=== PATIENT | female | born 1990 | race Caucasian/White ===

== ENCOUNTER 2020-03-31 18:56 | Emergency (ER) | payer OTHER, SELFPAY ==
[2020-03-31 19:56] VITALS: BP 114/73; PULSE 107; RESP 18; TEMP 36.9; O2SAT 97; BMI 30.8
--- NOTE | 2020-03-31 20:00 | ED.URI ---
HPI - URI/Sore Throat General Chief Complaint: Upper Respiratory Symptoms Stated Complaint: FLU LIKE SYMPTOMS Time Seen by Provider: 03/31/20 20:00 Source: patient Mode of arrival: ambulatory Limitations: no limitations History of Present Illness HPI Narrative: 29 yo female with no significant past medical history who is 30 weeks presents with body aches, fatigue, reduced appetite, nausea, productive cough. states she had an exposure as she lives with her mother and daughter, both of whom are feeling ill, she states her mother went to visit their grandfather to days ago who tested positive yesterday. She states she her last meal was this morning, she had a bowl of soup with noodles and was able to keep it down but has not been able to eat since. Denies diarrhea, vomiting or fevers. patient denies any abdominal pain, pelvic pain, Cramping, vaginal bleeding or discharge. Related Data Allergies Allergy/AdvReac Type Severity Reaction Status Date / Time No Known Allergies Allergy Unverified 02/25/20 17:09 Review of Systems Review of Systems: Yes all other systems are reviewed and are negative [facility] Past Medical History Attestation statement: The following information was validated with the patient. Medical History (Updated 03/31/20 @ 20:02 by TIKI Coronel) No known health problems No known health problems : 2 Para: 1 Social History Social History Smoking Status: Never smoker Use of substances other than those prescribed or required for medical reasons: No Advance Directives: No Physical Exam Const: General: cooperative, healthy appearing, comfortable and no acute distress Orientation/consciousness: patient oriented x3 Eyes: General: appearance normal, both eyes and all related structures Resp: Effort & Inspection: normal respiratory effort and able to speak in complete sentences Auscultation: clear to auscultation bilaterally Cardio: Rate: regular rate Rhythm: regular rhythm Heart sounds: S1 normal heart sound present, S2 normal heart sound present, no gallops, no murmurs and no rubs GI: Inspection: Yes normal to inspection ( visibly ) Skin: General skin exam: no rashes or lesions noted Neuro: General: patient oriented x3 Extrem: General: Yes normal to inspection Course Course Course Narrative: 29-year-old female, 30 weeks gestation, COVID exposure, sick contacts at home, will COVID test in sent home with instructions on self-care. We did speak at length the importance of her to stay hydrated because of her , we discussed different options such as Pedialyte, pito rale, toast, crackers. I did advise if she has any worsening of symptoms to come back to the ED. Also, I advised if she is positive, it is important for her to relate this to her braille transcriber for further guidance. Patient understands and agrees with plan. Answered all of patient's questions. Repeat heart rate 99
== END 2020-03-31 20:32 | disposition home or self-care (01) ==
PROVIDERS: Physician Assistant; Emergency Provider Emergency Medicine
DX: O26.93 Pregnancy related conditions, unspecified, third trimester (principal); Z3A.30 30 weeks gestation of pregnancy; Z20.828 Contact with and (suspected) exposure to other viral communicable diseases
CPT/HCPCS: 87635; 99283

== ENCOUNTER 2020-11-06 23:12 | Emergency (ER) | payer OTHER, SELFPAY ==
--- NOTE | ~2020-11-06 | XR_ITS ---
EXAMINATION: XR SACRUM AND COCCYX CLINICAL INFORMATION: Fall. Pain. COMPARISON: None TECHNIQUE: 3 views FINDINGS: There are no fractures. No bone, joint or soft tissue abnormality is demonstrated. Normal sacroiliac joints. Normal symphysis pubis and bilateral hip joints. XR/XR sacrum coccyx min 2V IMPRESSION: Normal sacrum and coccyx.
[2020-11-06 23:21] VITALS: BP 117/76; PULSE 111; RESP 18; TEMP 36.6; O2SAT 95; BMI 32.5
--- NOTE | 2020-11-06 23:35 | PC.NURSE ---
at bedside for primary eval.
--- NOTE | 2020-11-06 23:36 | PC.NURSE ---
MD at bedside for primary eval. Pt aware of plan to XRay.
--- NOTE | 2020-11-06 23:37 | ED_ITS ---
HPI - Back Pain/Injury General Chief Complaint: Back Pain/Injury Stated Complaint: Fall/Back pain Time Seen by Provider: 11/06/20 23:34 Source: patient Mode of arrival: ambulatory Limitations: no limitations History of Present Illness HPI Narrative: 30-year-old female came in for evaluation of back pain after fall. Patient was going down stair and she missed a step fell down about 8-10 steps of stairs landing buttocks, patient declined hitting her head, no LOC, no hand injury, only complaining of lower back pain. Patient is able to walk with lot of difficulty due to pain. Normal urination. Related Data Allergies Allergy/AdvReac Type Severity Reaction Status Date / Time No Known Allergies Allergy Verified 11/06/20 23:20 Review of Systems Review of Systems: All other systems are reviewed and are negative Constitutional: Reports as per HPI and Reports no additional constitutional complaints Eyes: Reports as per HPI and Reports no additional eye complaints Reports system reviewed and no additional complaints, except as documented Cardiovascular: Reports as per HPI and Reports no additional cardiovascular complaints Respiratory: Reports as per HPI and Reports no additional respiratory complaints Gastrointestinal: Reports as per HPI and Reports no additional gastrointestinal complaints Genitourinary: Reports no additional female genitourinary complaints Musculoskeletal: Reports no additional musculoskeletal complaints Skin/Breast: Reports system reviewed and no additional complaints, except as docu Psychiatric: Reports no additional psychiatric complaints Endocrine: Reports no additional endocrine complaints Hematologic/Lymphatic: Reports no additional hematologic/lymphatic complaints Allergic/Immunologic: Reports no additional allergic/immunologic complaints Reports system reviewed and no additional complaints, except as documented and Reports Abnormal speech present [facility] Past Medical History Medical History No known health problems No known health problems Social History Social History Advance Directives: No Advance Directives Information Provided: No Physical Exam Vital Signs: Vital Signs: Last Vital Signs Temp 97.8 F 11/06/20 23:21 Pulse 111 H 11/06/20 23:21 Resp 18 11/06/20 23:21 BP 117/76 11/06/20 23:21 Pulse Ox 95 11/06/20 23:21 Body Mass Index 32.5 Vital signs have been reviewed as appeared to be correct. Blood pressure normal. Heart rate elevated. Respiration rate normal. Temperature normal. Oxygen saturation normal. Appearance: Alert. Oriented X3. No acute distress. Head: Normal external exam. Normocephalic. Atraumatic. No Gallagher signs noted. No raccoon eyes noted Eyes: PERRLA. EOMI. Conjunctiva and sclera normal. Eyelids normal. ENT: TM's Normal. Pharynx normal. Uvula midline. Moist mucous membranes. No trismus noted. No drooling noted. No muffled voice noted. Neck: Normal inspection. Neck supple. FROM. No adenopathy. Thyroid Normal. No meningeal signs. No neck mass noted. CVS: Normal heart rate and rhythm. Heart sound normal. No murmurs noted. Pulses normal throughout. Respiratory: No respiratory distress. Painless inspiration. Breath sounds normal. No wheezes/rales/rhonchi noted. Chest nontender. No accessory muscle usage noted or decreased air movement noted. Abdomen: Soft and nontender. Bowel sounds normal in all 4 quadrants. No distention noted. No organomegaly noted. No visible injury noted. Back: Tenderness over the coccygeal area, no step-off, no ecchymosis or hematoma. Skin: Skin warm and dry. Normal skin color. Normal skin turgor. No rashes/lesions/lacerations noted. Extremities: No lower extremity edema. Extremities exhibit normal range of motion. Extremities nontender. Neuro: Oriented X 3. No motor deficit. No sensory deficit. Reflexes normal. Course Course Course Narrative: Assessment and plan. 30-year-old female presented with lower back contusion after failed few steps of stairs. X-ray show no acute fracture, patient received ibuprofen/oxycodone in the emergency department feeling better, patient is able to ambulate in the emergency department with less limping. Plan as discussed with the patient to apply ice to the lower back/wrist/NSAIDs. MDM - Back Pain/Injury Imaging Data Sacrum and coccyx x-ray: Radiologist's impression: Normal sacrum and coccyx. Discharge Plan Discharge Clinical Impression: Contusion of back Qualifiers: Encounter type: initial encounter Patient Disposition: Home, Self-Care Instructions: Contusion in Adults (ED) Additional Instructions: Rest/ice/take ibuprofen 200 mg every 6 hours for the next 2 days. Referrals: Physician,None [Primary Care Provider] - 2 days
[2020-11-06] MEDS: Ibuprofen 400 MG TABLET PO (23:39)
[2020-11-06] MEDS: oxyCODONE HCl Immed Release 5 MG TABLET PO (23:40)
--- NOTE | 2020-11-06 23:43 | PC.NURSE ---
Pt medicated per AUG. Off to XRay on hospital bed.
--- NOTE | 2020-11-06 23:50 | PC.NURSE ---
Pt returns from XRay at this time on hospital bed, aware of plan to await results.
[2020-11-07 00:11] VITALS: BP 116/61; PULSE 80; RESP 16
== END 2020-11-07 00:22 | disposition home or self-care (01) ==
PROVIDERS: Emergency Provider Emergency Medicine
DX: S30.0XXA Contusion of lower back and pelvis, initial encounter (principal); W10.8XXA Fall (on) (from) other stairs and steps, initial encounter; Y93.89 Activity, other specified; Y92.038 Other place in apartment as the place of occurrence of the external cause; Y99.9 Unspecified external cause status
CPT/HCPCS: 72220; 99283; 99285

== ENCOUNTER 2021-05-05 11:38 | Emergency (ER) | payer OTHER, SELFPAY ==
[2021-05-05 11:44] VITALS: BP 113/70; PULSE 75; RESP 18; TEMP 36.2; O2SAT 98; BMI 33.2
--- NOTE | 2021-05-05 12:10 | ED_ITS ---
HPI - Psych General Chief Complaint: Psychiatric Symptoms Stated Complaint: crisis Time Seen by Provider: 05/05/21 12:08 Source: patient Mode of arrival: ambulatory Limitations: no limitations History of Present Illness MD complaint: suicidal ideation and feels depressed Onset (ago): week(s) Duration: getting worse History of same: Yes Relieving factors: none Exacerbating factors: none Context: significant life stressor Associated psychiatric symptoms: depression Associated symptoms: denies other symptoms Treatments prior to arrival: none If self harm: admits thoughts of self harm and has acted on plan (denies self harm and wanting to now but she took 7 excedrin this AM) Related Data Allergies Allergy/AdvReac Type Severity Reaction Status Date / Time No Known Allergies Allergy Verified 05/05/21 11:44 Review of Systems Review of Systems: Constitutional : No Fever, No Chills ENT/Mouth : No Ear Pain, No Nasal Congestion, No sore throat Eyes: No Eye Pain, No Swelling, No Redness Cardiovascular : No Chest Pain, No SOB Respiratory : No Cough, No Sputum, No Dyspnea Gastrointestinal : No Nausea, No Vomiting, No Diarrhea, No Hematochezia, No Melena Genitourinary : No Dysuria, No Urinary Frequency, No Hematuria Musculoskeletal : No Myalgias Skin : No Skin Lesions, No rash Neuro : No Weakness, No Numbness, No Paresthesias, No Dizziness, No Headache Psych : positive Anxiety, positive Depression, no SI/HI Heme/Lymph: No Lymphadenopathy Endocrine : No Polyuria, No Polydipsia All other systems reviewed and are negative PMFSH Past Medical History Attestation statement: The following information was validated with the patient. Medical History (Updated 05/05/21 @ 13:32 by Delia Shelton DO) Depression No known health problems No known health problems Social History Social History Alcohol intake: never Patient Tobacco Use Status: Never used Tobacco Use of substances other than those prescribed or required for medical reasons: Yes Substance Use Type: Marijuana Substance Use Frequency: Daily Advance Directives: No Advance Directives Information Provided: Yes Patient : No Physical Exam Vital Signs: Vital Signs: Last Vital Signs Temp 97.2 F 05/05/21 11:44 Pulse 77 05/05/21 15:56 Resp 18 05/05/21 15:56 BP 108/66 05/05/21 15:56 Pulse Ox 98 05/05/21 15:56 Body Mass Index 33.2 Appearance: Alert. Oriented X3. No acute distress. Eyes: Pupils equal, round and reactive to light. ENT: Pharynx normal. Neck: Normal inspection. Neck supple. CVS: Normal heart rate and rhythm. Pulses normal. Respiratory: No respiratory distress. Breath sounds normal. Abdomen: Soft and nontender. Skin: Skin warm and dry. Normal skin color. Normal skin turgor. Extremities: No lower extremity edema. No calf ttp Neuro: Oriented X 3. No motor deficit. No sensory deficit. CN2-12 intact Psych: pos depression, no SI Course Course Course Narrative: signed out pending repeat labs if negative medically cleared MDM - Psych MDM Narrative Medical decision making narrative: 30 yo female with hx of depression did take 7 excedrin prior to arrival - at this time will need labs , EKG, tylenol and salicylates x 2 - once medically cleared N consult Lab Data Result diagrams: 05/05/21 14:11 05/05/21 14:11 Labs: Lab Results 05/05/21 05/05/21 05/05/21 Range/Units 13:23 13:23 14:11 WBC 6.4 (4.8-10.8) X10*3/uL RBC 4.68 (4.20-5.50) X10*6/uL Hgb 13.2 (12.0-16.0) g/dl Hct 39.5 (37.0-47.0) % MCV 84.4 (80.0-98.0) fL MCH 28.2 (27.0-33.0) pg MCHC 33.4 (31.0-35.0) g/dl RDW 13.7 (11.0-16.0) % Plt Count 259 (160-400) X10*3/uL MPV 10.7 (9.4-12.3) fL Immature Gran % (Auto) 0.2 (0.0-0.4) % Neut % (Auto) 51.5 (45-73) % Lymph % (Auto) 38.7 (20-40) % [place] % (Auto) 8.7 (2-11) % Eos % (Auto) 0.3 (0-4) % Baso % (Auto) 0.6 (0-2) % Lymph # (Auto) 2.5 (1.2-4.9) X10*3/uL [place] # (Auto) 0.6 (0.1-1.2) X10*3/uL Eos # (Auto) 0.0 (0.0-0.4) X10*3/uL Baso # (Auto) 0.0 (0.0-0.2) X10*3/uL Abs Immat Gran (auto) 0.01 (0.00-0.03) X10*3/uL Absolute Neuts (auto) 3.3 (2.0-8.3) x10*3/uL Absolute Nucleated RBC 0.000 (0.0-0.012) X10*3/uL Nucleated RBC % (auto) 0.0 (0.0-0.2) /100WBC Sodium (135-145) mmol/L Potassium (3.3-5.1) mmol/L Chloride (96-108) mmol/L Carbon Dioxide (22-29) mmol/L Anion Gap (12-20) BUN (9-16) mg/dL Creatinine (0.5-1.4) mg/dL Estim Creat Clear Calc Estimated GFR Random Glucose (60-115) mg/dL Calcium (8.4-10.2) mg/dL Total Bilirubin (0.0-1.0) mg/dL Direct Bilirubin (0.0-0.5) mg/dL AST (5-31) U/L ALT (0-31) U/L Alkaline Phosphatase (39-117) U/L Total Protein (6.5-8.0) g/dL Albumin (3.5-5.0) g/dL Urine Test NEGATIVE (NEGATIVE) Salicylates (15-30) mg/dL Urine Opiates Screen Not Detected (Not Detect) Urine Fentanyl Screen Not Detected (Not Detect) Acetaminophen (<30) mcg/mL Ur Barbiturates Screen Not Detected (Not Detect) Ur Phencyclidine Scrn Not Detected (Not Detect) Ur Amphetamines Screen Not Detected (Not Detect) U Benzodiazepines Scrn Not Detected (Not Detect) Urine Cocaine Screen Not Detected (Not Detect) U Marijuana (THC) Screen POSITIVE H (Not Detect) COVID-19 (SAMI) (Negative) COVID-19 Clin Com 05/05/21 05/05/21 05/05/21 Range/Units 14:11 14:11 14:11 WBC (4.8-10.8) X10*3/uL RBC (4.20-5.50) X10*6/uL Hgb (12.0-16.0) g/dl Hct (37.0-47.0) % MCV (80.0-98.0) fL MCH (27.0-33.0) pg MCHC (31.0-35.0) g/dl RDW (11.0-16.0) % Plt Count (160-400) X10*3/uL MPV (9.4-12.3) fL Immature Gran % (Auto) (0.0-0.4) % Neut % (Auto) (45-73) % Lymph % (Auto) (20-40) % [place] % (Auto) (2-11) % Eos % (Auto) (0-4) % Baso % (Auto) (0-2) % Lymph # (Auto) (1.2-4.9) X10*3/uL [place] # (Auto) (0.1-1.2) X10*3/uL Eos # (Auto) (0.0-0.4) X10*3/uL Baso # (Auto) (0.0-0.2) X10*3/uL Abs Immat Gran (auto) (0.00-0.03) X10*3/uL Absolute Neuts (auto) (2.0-8.3) x10*3/uL Absolute Nucleated RBC (0.0-0.012) X10*3/uL Nucleated RBC % (auto) (0.0-0.2) /100WBC Sodium 140 (135-145) mmol/L Potassium 3.7 (3.3-5.1) mmol/L Chloride 108 (96-108) mmol/L Carbon Dioxide 21 L (22-29) mmol/L Anion Gap 15 (12-20) BUN 7 L (9-16) mg/dL Creatinine 0.71 (0.5-1.4) mg/dL Estim Creat Clear Calc 112.8 Estimated GFR > 60 Random Glucose 87 (60-115) mg/dL Calcium 8.9 (8.4-10.2) mg/dL Total Bilirubin 0.3 0.3 (0.0-1.0) mg/dL Direct Bilirubin 0.2 0.2 (0.0-0.5) mg/dL AST 23 21 (5-31) U/L ALT 26 26 (0-31) U/L Alkaline Phosphatase 82 81 (39-117) U/L Total Protein 7.4 7.4 (6.5-8.0) g/dL Albumin 4.6 4.6 (3.5-5.0) g/dL Urine Test (NEGATIVE) Salicylates 11.0 L (15-30) mg/dL Urine Opiates Screen (Not Detect) Urine Fentanyl Screen (Not Detect) Acetaminophen 16 (<30) mcg/mL Ur Barbiturates Screen (Not Detect) Ur Phencyclidine Scrn (Not Detect) Ur Amphetamines Screen (Not Detect) U Benzodiazepines Scrn (Not Detect) Urine Cocaine Screen (Not Detect) U Marijuana (THC) Screen (Not Detect) COVID-19 (SAMI) Negative (Negative) COVID-19 Clin Com See Note ECG Data Attestation: I personally reviewed and interpreted this ECG as follows: ECG interpretation date: 05/05/21 ECG interpretation time: 14:02 Interpretation: Rate: 69 Rhythm: NSR [place]: left Normal P waves. Normal [place]. Normal QRS complex. ST T wave : inverted V1-V2, no DIOR qTC: normal prior studies: no acute ischemia The study has been interpreted contemporaneously by me. . Discharge Plan Discharge Clinical Impression: Depression Qualifiers: Depression Type: unspecified Qualified Code(s): F32.A - Depression, unspecified
--- NOTE | 2021-05-05 12:35 | ECG_ITS ---
Test Reason : PSYCH Blood Pressure : / mmHG Vent. Rate : 069 BPM Atrial Rate : 069 BPM P-R Int : 132 ms QRS Dur : 094 ms QT Int : 414 ms P-R-T Axes : 020 000 028 degrees QTc Int : 443 ms Normal sinus rhythm RSR' or QR pattern in V1 suggests right ventricular conduction delay Abnormal ECG When compared with ECG of 12-DEC-2012 10:11, ST no longer depressed in Inferior leads Heart rate has decreased Referred By: Delia Shelton Electronically Signed By:DARREL ZAMORANO MD
[2021-05-05 13:40] LABS: UPreg QC Valid YES; Urine Pregnancy NEGATIVE (NEGATIVE)
[2021-05-05 13:44] VITALS: BP 113/60; PULSE 73; RESP 18; O2SAT 99
[2021-05-05 13:54] LABS: Amphetamine Screen Urine Not Detected (Not Detect); Barbiturates, Urine Not Detected (Not Detect); Benzodiazepines Screen Urine Not Detected (Not Detect); Cannabinoid Screen Urine POSITIVE (Not Detect); Cocaine Screen Urine Not Detected (Not Detect); Fentanyl, urine Not Detected (Not Detect); Opiate Screen Urine Not Detected (Not Detect); Phencyclidine Screen Urine Not Detected (Not Detect)
[2021-05-05 14:17] LABS: MANUAL DIFF FLAG NO
[2021-05-05 14:19] LABS: Basophils Percent Auto 0.6 % (0-2); Eosinophils Percent Auto 0.3 % (0-4); Hematocrit 39.5 % (37.0-47.0); Hemoglobin 13.2 g/dl (12.0-16.0); Imm Gran Abs Auto 0.01 X10*3/uL (0.00-0.03); Imm Gran Pct Auto 0.2 % (0.0-0.4); Lymphocytes Absolute Auto 2.5 X10*3/uL (1.2-4.9); Lymphocytes Percent Auto 38.7 % (20-40); Mean Corpuscular HGB Conc 33.4 g/dl (31.0-35.0); Mean Corpuscular Hemoglobin 28.2 pg (27.0-33.0); Mean Corpuscular Volume 84.4 fL (80.0-98.0); Mean Platelet Volume 10.7 fL (9.4-12.3); Monocytes Absolute Auto 0.6 X10*3/uL (0.1-1.2); Monocytes Percent Auto 8.7 % (2-11); Neutrophils Absolute Auto 3.3 x10*3/uL (2.0-8.3); Neutrophils Percent Auto 51.5 % (45-73); Platelet Count 259 X10*3/uL (160-400); Red Blood Count 4.68 X10*6/uL (4.20-5.50); Red Cell Distribution Width 13.7 % (11.0-16.0); White Blood Count 6.4 X10*3/uL (4.8-10.8)
[2021-05-05 14:34] LABS: COVID-19 Test Negative (Negative); IDNOW Serial# 9DD0AD1C
[2021-05-05 14:37] LABS: Acetaminophen LAB 16 mcg/mL (<30); Alanine Aminotransferase 26 U/L (0-31); Albumin Level 4.6 g/dL (3.5-5.0); Alkaline Phosphatase 81 U/L (39-117); Aspartate Amino Transferase 21 U/L (5-31); Bilirubin Direct 0.2 mg/dL (0.0-0.5); Bilirubin Total 0.3 mg/dL (0.0-1.0); Total Protein 7.4 g/dL (6.5-8.0)
[2021-05-05 14:38] LABS: Alanine Aminotransferase 26 U/L (0-31); Albumin Level 4.6 g/dL (3.5-5.0); Alkaline Phosphatase 82 U/L (39-117); Anion Gap 15 (12-20); Aspartate Amino Transferase 23 U/L (5-31); Bilirubin Direct 0.2 mg/dL (0.0-0.5); Bilirubin Total 0.3 mg/dL (0.0-1.0); Blood Urea Nitrogen 7 mg/dL (9-16); Calcium 8.9 mg/dL (8.4-10.2); Carbon Dioxide 21 mmol/L (22-29); Chloride 108 mmol/L (96-108); Creatinine Clr Calc Pharmacy 112.8; Estimated Glomerular Filt Rate > 60; Glucose Random 87 mg/dL (60-115); Potassium 3.7 mmol/L (3.3-5.1); Sodium 140 mmol/L (135-145); Total Protein 7.4 g/dL (6.5-8.0)
[2021-05-05 15:56] VITALS: BP 108/66; PULSE 77; RESP 18; O2SAT 98
--- NOTE | 2021-05-05 15:56 | PC.NURSE ---
pt alert and oriented, skin appropriate for ethnicity, respirations even and unlabored. pt reports taking 2 tabs of Excedrin for a headache then took additional 5 tabs not sure exactly why, pt keeps reporting that she just feels tired, very vague but also reports anxious at this time. sitter in place
[2021-05-05] MEDS: LORazepam 1 MG TABLET PO (16:00)
[2021-05-05 16:34] LABS: Acetaminophen LAB 10 mcg/mL (<30); Salicylate 8.8 mg/dL (15-30)
--- NOTE | 2021-05-05 17:53 | PC.NURSE ---
referral to n done in the computer
--- NOTE | 2021-05-05 19:53 | PC.NURSE ---
BHn in to see patient at this time.
--- NOTE | 2021-05-05 20:57 | PC.NURSE ---
Patient is alert and oriented x 4 lung sounds are clear skin is pink warm and dry speaks in full sentences aware of plan of care to be discharged home with partial hospitalization and outpt referral. Denies any self harm at this time is calm and cooperative.
== END 2021-05-05 21:01 | disposition home or self-care (01) ==
PROVIDERS: Emergency Provider Emergency Medicine; PCP Internal Medicine
DX: F32.A Depression, unspecified (principal); R45.851 Suicidal ideations; F41.9 Anxiety disorder, unspecified; F12.90 Cannabis use, unspecified, uncomplicated; Z20.822 Contact with and (suspected) exposure to COVID-19
CPT/HCPCS: 36415; 80048; 80076; 80143; 80179; 80307; 81025; 85025; 87635; 93005; 99285

== ENCOUNTER 2023-09-20 20:14 | Emergency (ER) | payer OTHER, SELFPAY ==
[2023-09-20 20:30] VITALS: BP 122/78; PULSE 93; RESP 18; TEMP 37.6; O2SAT 99; BMI 32.1
--- NOTE | 2023-09-20 20:32 | ED.URI ---
HPI - URI/Sore Throat General Chief Complaint: General Medical Stated Complaint: Throat pain Time Seen by Provider: 09/20/23 21:42 Source: patient Mode of arrival: ambulatory Limitations: no limitations History of Present Illness HPI Narrative: 33 yo female no sig PMH here with c/o sore throat for 3 days no travel or sick contacts has not taken any OTC medications. Just got over COVID 2 weeks ago. Has headache and body aches. MD elicited complaint: sore throat Onset (ago): day(s) (3) Consistency: constant Severity: moderate Description of mucous: clear Able to tolerate fluids by mouth: Yes Exacerbating factors: swallowing Relieving factors: nothing Associated symptoms: fever, myalgias and headache Treatments prior to arrival: none Related Data Previous Rx's ?Medication ?Instructions ?Recorded amoxicillin 500 mg tablet 500 mg PO BID #19 tabs 09/20/23 Allergies Allergy/AdvReac Type Severity Reaction Status Date / Time No Known Allergies Allergy Verified 09/20/23 20:31 Review of Systems Review of Systems: Constitutional : pos Fever, pos Chills, pos Fatigue ENT/Mouth : pos sore throat, No Rhinorrhea Eyes: No Eye Pain, No Swelling, No Redness Cardiovascular : No Chest Pain, No SOB, No Dyspnea on Exertion Respiratory : No Cough, No Sputum Gastrointestinal : No Nausea, No Vomiting, No Diarrhea, No abdominal Pain Genitourinary : No Dysuria, No Urinary Frequency, No Hematuria, Musculoskeletal : No joint pain, pos Myalgias, No Joint Swelling Skin : No Skin Lesions, No rash Neuro : No Weakness, No Numbness, No Dizziness, positive Headache All other systems reviewed and are negative [facility] Past Medical History Attestation statement: The following information was validated with the patient. Source: old records reviewed Medical History Depression No known health problems No known health problems Social History Social History Alcohol intake: never Patient Tobacco Use Status: Never used Tobacco Substance Use Type: Marijuana Advance Directives: No Advance Directives Information Provided: No Physical Exam Vital Signs: Vital Signs: Last Vital Signs Temp 99.6 F 09/20/23 20:30 Pulse 93 09/20/23 20:30 Resp 18 09/20/23 20:30 BP 122/78 09/20/23 20:30 Pulse Ox 99 09/20/23 20:30 O2 Del Method Room Air 09/20/23 20:30 BMI result Body Mass Index 32.1 Appearance: Alert. Oriented X3. No acute distress. Eyes: Pupils equal, round and reactive to light. ENT: Pharynx erythema uvula midline mild bilateral tonsilar swelling with exudates no drooling tolerating secretions Neck: Normal inspection. Neck supple. CVS: Normal heart rate and rhythm. Pulses normal. Respiratory: No respiratory distress. Breath sounds normal. Abdomen: Soft and nontender. Skin: Skin warm and dry. Normal skin color. Normal skin turgor. Extremities: No lower extremity edema. Neuro: Oriented X 3. No motor deficit. No sensory deficit. Course Course Course Narrative: This is an RME: Additional HPI, ROS, PE not included below will be deferred to primary provider. Patient is a 33-year-old female who presents emergency department for evaluation of sore throat, chills, reports having a white sore to the right side of her throat. Denies concern for sexually transmitted infection/oral intercourse. Denies history of acid reflux or heartburn. 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 She is not toxic and tolerating PO. Differential Diagnosis Differential Diagnoses: The differential diagnosis associated with the presentation includes viral syndrome, strep throat Admission/Observation Consideration of admission/observation: Escalation of care including admission/observation considered not toxic, tolerating PO stable for DC Lab Data [facility] Lab Attestation statement: I reviewed the patient's lab results. Labs: Lab Results 09/20/23 09/20/23 Range/Units 20:43 20:44 Influenza Type A (PCR) NEGATIVE (Negative) Influenza Type B (PCR) NEGATIVE (Negative) RSV RNA Qual (PCR) NEGATIVE (Negative) SARS-CoV-2 RNA (RT-PCR) NEGATIVE (Negative) S. pyogenes GrpA JAKE Positive A (Negative) External Record Review External record reviewed: Inpatient record Prescription Management I considered prescription management with: Antibiotic Discharge Plan Discharge Clinical Impression: Strep throat Patient Disposition: Home, Self-Care Instructions: Strep Throat (ED) Additional Instructions: take tylenol and motrin as needed for pain - next dose can be around 4am if needed - return for worsening symptoms, swelling, mass felt in neck on one side, drooling or any other concerns. should be better in 24 to 48 hours. Prescriptions: New amoxicillin 500 mg tablet 500 mg PO BID Qty: 19 0RF Print Language: Estonian
--- OUTSIDE RECORDS SUMMARY | 2023-09-20 20:47 | XMS_ITS | Continuity of Care Document ---
Author Organization [facility] ter Address [address] [place] [address]- Care Team Providers Care Wood Cutter Name Role Phone Germain Rodriguez MD Primary Care Physician [phone] Encounter [facility] Date(s): 06/25/20 - 06/25/[address] [address]- Discharge Disposition: A-D/C Home Attending Physician: Denice Doll MD Admitting Physician: Denice Doll MD Referring Physician: Denice Doll MD Allergies, Adverse Reactions, Alerts Substance Reaction Severity Status NKA Active Immunizations Given and Recorded Vaccine Date Status Refusal Reason tetanus/diphtheria/pertussis, acel(Tdap) 03/07/20 Given tetanus/diphtheria/pertussis, acel(Tdap) 1 08/28/13 Given influenza virus vaccine, inactivated 03/07/20 Give n influenza virus vaccine, inactivated 2 06/17/13 Gi kristina influenza virus vaccine, inactivated 3 06/17/13 Gi kristina Human Papillomavirus Vaccine 4 04/15/15 Given Human Papillomavirus Vaccine 12/26/06 Given Human Papillomavirus Vaccine 10/16/06 Given 1Admin Note: NKA. Vis sheet given to pt. 2Result Comment: VIS form given, pt denies past reaction, allergy to eggs, hx of GBS. Vaccine given left deltoid,pt tolerated well. 3Admin Note: VIS form given to pt.pt denies past reaction,allergy to chicken eggs, hx GBS.Vaccine given left deltoid. 4Result Comment: [04/15/2015] Vis given. Patient waited 10 minutes following injection. Patient advised to make 2 month follow up for next vaccine. Medications acetaminophen 325 mg oral tablet 650 mg, By Mouth, Every 4 hours, PRN, (1-3), may give 325mg per patient preference and re-dose [id number] within 4 hours, if needed. Patient should only receive a total of 650mg of Acetaminophen every 4 hours., Refills 0, Maintenance, Pain , Mild, 0... Start Date: 06/12/20 Status: Ordered dicloxacillin 500 mg oral capsule 1 capsule = 500 mg, By Mouth, Every 6 hours, for 10 days, # 40 capsule, 0 Refills, Acute 07/05/20 17:52:00 EST, 06/25/20 17:52:00 EST, Capsule, [facility]/pharmacy #[id number], Partial fill upon patient request if the prescription is for a schedule II opioid drug.... Start Date: 06/25/20 Stop Date: 07/05/20 Status: Ordered dicloxacillin 500 mg oral capsule 1 capsule = 500 mg, By Mouth, Every 6 hours, for 14 days, # 56 capsule, 0 Refills, Acute 07/09/20 19:11:00 EST, 06/25/20 19:11:00 EST, Capsule, [facility]/pharmacy #[id number], Partial fill upon patient request if the prescription is for a schedule II opioid drug.... Start Date: 06/25/20 Stop Date: 07/09/20 Status: Ordered ibuprofen 800 mg oral tablet 800 mg, 1, tablet, By Mouth, Every 8 hours, PRN, Refills 0, Maintenance, Pain , Mild, 06/12/20 8:53:00 EST, Partial fill upon patient request if the prescription is for a schedule II opioid drug. Start Date: 06/12/20 Status: Ordered Problem List Condition Effective Dates Status Health Status Inform ant Chronic UTI(Confirmed) Active Depression(Confirmed) Active Hyperemesis gravidarum(Confirmed) Active Migraine(Confirmed) Active Obesity (BMI 30.0-34.9)(Confirmed) Active Vital Signs Most recent to oldest [Reference Range]: 1 Height 155 cm (06/25/20 3:58 PM) Weight 71.9 kg (06/25/20 3:55 PM) Oxygen Saturation [94-100 %] 97 % (06/25/20 3:55 PM) Pulse Rate [55-90 bpm] 111 bpm *H* (06/25/20 3:55 PM) Blood Pressure [90-138/55-84 mm Hg] 107/ 69mm Hg (06/25/20 3:55 PM) Respiratory Rate [16-30 br/min] 20 br/mi n (06/25/20 3:55 PM) Temperature [96.8-100.4 DegF] 100.5 DegF *H* (06/25/20 3:55 PM) Mode of Delivery (Oxygen) Room air (06/25/20 3:55 PM) Blood pressure sites Arm, left 1 (06/25/20 3:55 PM) Temperature Route Oral (06/25/20 3:55 PM) Weight Obtained Via Standing scale (06/25/20 3:55 PM) 1Result Comment: left arm measured at 29.5 Social History Social History Type Response Smoking Status Former smoker, quit more than 30 days ago; Tobacco user in household: No; Other: QUIT 2 PRIOR TO ; entered on: 11/03/19 Sex
--- OUTSIDE RECORDS SUMMARY | 2023-09-20 20:47 | XMS_ITS | Continuity of Care Document ---
Author Organization [facility] ter Address [address] [place] [address]- Care Team Providers Care Key Holder Name Role Phone Germain Rodriguez MD Primary Care Physician [phone] [place] [facility]11[place] 06/12/[address] [address] Discharge Disposition: A-D/C Home Attending Physician: Denice [...] give 325mg per patient preference and re-dose [id number] within 4 hours, if needed. Patient should only receive a total of 650mg of Acetaminophen every 4 hours., Refills 0, Maintenance, Pain , Mild, 0... Start Date: 06/12/20 Status: Ordered ibuprofen 800 mg oral tablet 800 mg, 1, tablet, By Mouth, Every 8 hours, PRN, Refills 0, Maintenance, Pain , Mild, 06/12/20 8:53:00 EST, Partial fill upon patient request if the prescription is for a schedule II opioid drug. Start Date: 06/12/20 Status: Ordered oxyCODONE 5 mg oral capsule 1 capsule = 5 mg, By Mouth, Every 6 hours, PRN as needed for pain, # 10 capsule, 0 Refills, Acute 06/17/20 20:30:00 EST, 06/12/20 20:29:00 EST, Capsule, [facility]/pharmacy #[id number], Partial fill upon patient request if the prescription is for a schedule II opi... Start Date: 06/12/20 Stop Date: 06/17/20 Status: Ordered Problem List Condition Effective Dates Status Health Status Inform ant Chronic UTI(Confirmed) Active Depression(Confirmed) Active Hyperemesis gravidarum(Confirmed) Active Migraine(Confirmed) Active Obesity (BMI 30.0-34.9)(Confirmed) Active Vital Signs Most recent to oldest [Reference Range]: 1 2 3 Height 155 cm (06/12/20 2:41 PM) 155 cm (06/12/20 11:29 AM) 155 cm (06/12/20 9:01 AM) Weight 67 kg (06/11/20 4:52 AM) Oxygen Saturation [94-100 %] 98 % (06/12/20 11:19 AM) 99 % (06/12/20 11:12 AM) 99 % (06/12/20 11:00 AM) Pulse Rate [55-90 bpm] 68 bpm (06/12/20 2:41 PM) 65 bpm (06/12/20 11:29 AM) 70 bpm (06/12/20 9:01 AM) Body Mass Index [18.5-24.99] 27.89 *H* (06/11/20 4:52 AM) Blood Pressure [90-138/55-84 mm Hg] 120/75mm Hg (06/12/20 2:41 PM) 117/71mm Hg (06/12/20 11:29 AM) 104/69mm Hg (06/12/20 11:19 AM) Respiratory Rate [16-30 br/min] 19 br/min (06/12/20 2:41 PM) 20 br/min (06/12/20 11:29 AM) 12 br/min *L* (06/12/20 11:19 AM) Temperature [96.8-100.4 DegF] 98.0 DegF (06/12/20 2:41 PM) 98.2 DegF (06/12/20 11:19 AM) 98 DegF (06/12/20 10:35 AM) Mode of Delivery (Oxygen) Room air (06/12/20 11:12 AM) Room air (06/12/20 10:35 AM) Room air (06/12/20 10:35 AM) Blood pressure sites Arm, left (06/12/20 2:41 PM) Arm, right (06/12/20 11:29 AM) Arm, left (06/12/20 9:01 AM) Temperature Route Oral (06/12/20 2:41 PM) Oral (06/12/20 11:19 AM) Oral (06/12/20 10:35 AM) Dry Weight 67 kg (06/11/20 4:52 AM) Social History Social History Type Response Smoking Status Former smoker, quit more than 30 days ago; Tobacco user in household: No; Other: QUIT 2 PRIOR TO ; entered on: 11/03/19 Sex
--- OUTSIDE RECORDS SUMMARY | 2023-09-20 20:47 | XMS_ITS | Continuity of Care Document ---
Author Organization [facility] ter Address [address] [place] [address]- Care Team Providers Care Gold Leaf Laborer Name Role Phone Michael VERA, Germain Vargas Primary Care Physician [phone] Encounter [facility] Date(s): 11/26/19 - 11/26/[address] [address]- [facility] Discharge Disposition: A-D/C Home Attending Physician: Minna Fernandez MD Admitting Physician: Minna Fernandez MD Referring Physician: Minna Fernandez MD Allergies, Adverse Reactions, Alerts Substance Reaction Severity Status NKA Active Immunizations Given and Recorded Vaccine Date Status Refusal Reason Human Papillomavirus Vaccine 1 04/15/15 Given Human Papillomavirus Vaccine 12/26/06 Given Human Papillomavirus Vaccine 10/16/06 Given tetanus/diphtheria/pertussis, acel(Tdap) 2 08/28/13 Given influenza virus vaccine, inactivated 3 06/17/13 Gi kristina influenza virus vaccine, inactivated 4 06/17/13 Gi kristina 1Result Comment: [04/15/2015] Vis given. Patient waited 10 minutes following injection. Patient advised to make 2 month follow up for next vaccine. 2Admin Note: NKA. Vis sheet given to pt. 3Result Comment: VIS form given, pt denies past reaction, allergy to eggs, hx of GBS. Vaccine given left deltoid,pt tolerated well. 4Admin Note: VIS form given to pt.pt denies past reaction,allergy to chicken eggs, hx GBS.Vaccine given left deltoid. Medications amoxicillin 875 mg oral tablet 1 tablet = 875 mg, By Mouth, Every 12 hours, for 7 days, Take all of this medication as prescribed,# 14 tablet, 0 Refills, Acute 12/01/19 9:52:00 EDT, 11/24/19 9:52:00 EDT, Tablet, [facility]/pharmacy #[id number], 155.2, cm, 11/18/19 9:47:00 EDT, Height, 72.72, k... Start Date: 11/24/19 Stop Date: 12/01/19 Status: Ordered metoclopramide 10 mg oral tablet 1 tablet = 10 mg, By Mouth, 4 times a day, 30 minutes before meals and at bedtime, # 120 tablet, 0 Refills, Acute 02/17/20 12:00:00 EDT, 11/25/19 9:43:00 EDT, Tablet, [facility]/pharmacy #[id number], 155.2, cm, 11/18/19 9:47:00 EDT, Height, 67, kg, 11/24/19 20:31:... Start Date: 11/25/19 Stop Date: 02/17/20 Status: Ordered ondansetron 4 mg oral tablet, disintegrating 1 tablet = 4 mg, By Mouth, Every 8 hours, PRN Nausea & Vomiting, # 21 tablet, 0 Refills, Maintenance, 11/26/19 18:16:00 EDT, Tablet, [facility]/pharmacy #[id number], 155, cm, 11/26/19 14:45:00 EDT, Height, 67, kg, 11/24/19 20:31:00 EDT, Dry Weight Start Date: 11/26/19 Status: Ordered Unisom 25 mg oral tablet 1 tablet = 25 mg, By Mouth, Daily at bedtime, PRN Vomiting, # 30 tablet, 1 Refills, Acute 12/21/19 10:52:00 EDT, 10/21/19 10:51:00 EDT, Tablet, [facility]/pharmacy #[id number], 155.2, cm, 06/05/19 16:00:00 EST, Height, 71.4, kg, 06/11/18 13:49:00 EST, Dry Weight Start Date: 10/21/19 Stop Date: 12/21/19 Status: Ordered Vitamin B6 Daily, 0 Refills, Maintenance, 11/18/19 10:08:00 EDT Start Date: 11/18/19 Status: Ordered Problem List Condition Effective Dates Status Health Status Inform ant IUGR (intrauterine growth re striction) in prior , (Confirmed) Active GBS bacteriuria(Confirmed) Active Chronic UTI(Confirmed) Active Depression(Confirmed) Active History of depression(Confirmed) Active Hyperemesis gravidarum(Confirmed) Active Healthy adult on routine phy sical examination(Confirmed) Active Migraine(Confirmed) Active Supervision of normal (Confirmed) Active Obesity (BMI 30.0-34.9)(Confirmed) Active Vital Signs Most recent to oldest [Reference Range]: 1 Height 155 cm (11/26/19 2:45 PM) Pulse Rate [55-90 bpm] 90 bpm (11/26/19 2:45 PM) Blood Pressure [90-138/55-84 mm Hg] 101/ 70mm Hg (11/26/19 2:45 PM) Respiratory Rate [16-30 br/min] 20 br/mi n (11/26/19 2:45 PM) Temperature [96.8-100.4 DegF] 98.2 DegF (11/26/19 2:45 PM) Blood pressure sites Arm, left (11/26/19 2:45 PM) Temperature Route Oral (11/26/19 2:45 PM) Social History Social History Type Response Smoking Status Former smoker, quit more than 30 days ago; Tobacco user in household: No; Other: QUIT 2 PRIOR TO ; entered on: 11/03/19 Sex
--- OUTSIDE RECORDS SUMMARY | 2023-09-20 20:47 | XMS_ITS | Continuity of Care Document ---
Author Organization [facility] [employer] Address [address], [address] [place] [address]- Care Team Providers Care Sheeter Waxer Operator Name Role Phone Michael VERA, Germain Vargas Primary Care Physician [phone] [id number] Date(s): 10/16/19 - 10/23/19 [facility] [employer] [address] [place] [address]- [facility] Attending Physician: Judith Ahn CNM Allergies, Adverse Reactions, Alerts Substance Reaction Severity [...] eggs, hx GBS.Vaccine given left deltoid. Medications Farheen 30 mg oral tablet 1 tablet = 30 mg, By Mouth, Once, For use within 5 days of unprotected intercourse., # 1 tablet, 1 Refills, Soft Stop, 06/24/19 10:53:00 EST, Tablet, [facility] [address], 155.2, cm, 06/05/19 16:00:00 EST, Height, 71.4, kg, 06/11/18 13:49:00 EST,... Start Date: 06/24/19 Status: Ordered meclizine 25 mg oral tablet See Instructions, PRN for motion sickness, 1 tablet by mouth every 4 to 6 hours as needed for nausea and vomiting in , # 60 tablet, 0 Refills, Maintenance, 10/22/19 10:30:00 EDT, Tablet, [facility]/pharmacy #[id number], 155.2, cm, 06/05/19 16:00:00 EST, H... Start Date: 10/22/19 Status: Ordered Multivitamins By Mouth, Daily, 0 Refills, Maintenance, 10/21/19 9:44:00 EDT Start Date: 10/21/19 Status: Ordered promethazine 25 mg rectal suppository 1 supp = 25 mg, Rectally, Every 6 hours, PRN as needed for nausea/vomiting, # 30 supp, 1 Refills, Maintenance, 10/21/19 10:53:00 EDT, Suppository, [facility]/pharmacy #[id number], 155.2, cm, 06/05/19 16:00:00 EST, Height, 71.4, kg, 06/11/18 13:49:00 EST, Dry Weight Start Date: 10/21/19 Stop Date: 11/04/19 Status: Ordered pyridoxine 25 mg oral tablet See Instructions, 1 tablet By Mouth TID 30 days, # 100 tablet, 1 Refills, Acute 12/21/19 10:52:00 EDT, 10/21/19 10:52:00 EDT, Tablet, [facility]/pharmacy #[id number], 155.2, cm, 06/05/19 16:00:00 EST, Height, 71.4, kg, 06/11/18 13:49:00 EST, Dry Weight Start Date: 10/21/19 Stop Date: 12/21/19 Status: Ordered Unisom 25 mg oral tablet 1 tablet = 25 mg, By Mouth, Daily at bedtime, PRN Vomiting, # 30 tablet, 1 Refills, Acute 12/21/19 10:52:00 EDT, 10/21/19 10:51:00 EDT, Tablet, [facility]/pharmacy #[id number], 155.2, cm, 06/05/19 16:00:00 EST, Height, 71.4, kg, 06/11/18 13:49:00 EST, Dry Weight Start Date: 10/21/19 Stop Date: 12/21/19 Status: Ordered Vitamin B6 Daily, 0 Refills, Maintenance, 10/21/19 9:44:00 EDT Start Date: 10/21/19 Status: Ordered Vitamin C By Mouth, Daily, 0 Refills, Maintenance, 10/21/19 9:44:00 EDT Start Date: 10/21/19 Status: Ordered Problem List Condition Effective Dates Status Health Status Inform ant History of depression(Confirmed) Active Healthy adult on routine phy sical examination(Confirmed) Active Social History Social History Type Response Smoking Status Never smoker; Tobacc o user in household: No entered on: 07/18/16 Sex
--- OUTSIDE RECORDS SUMMARY | 2023-09-20 20:47 | XMS_ITS | Continuity of Care Document ---
Author Organization [facility] ter Address [address] [place] [address]- Care Team Providers Care Asp Net Software Developer Name Role Phone Michael VERA, Germain Vargas Primary Care Physician Encounter [facility] Date(s): 11/02/19 - 11/03/[address] [address]- [facility] Discharge Disposition: A-D/C Home Attending Physician: Isaac Juan MD Admitting Physician: Isaac Juan MD Referring Physician: Isaac Juan MD Allergies, Adverse Reactions, Alerts Substance Reaction [...] eggs, hx GBS.Vaccine given left deltoid. Medications pyridoxine 25 mg oral tablet See Instructions, 1 tablet By Mouth TID 30 days, # 100 tablet, 1 Refills, Acute 12/21/19 10:52:00 EDT, 10/21/19 10:52:00 EDT, Tablet, [facility]/pharmacy #[id number], 155.2, cm, 06/05/19 16:00:00 EST, Height, 71.4, kg, 06/11/18 13:49:00 EST, Dry Weight Start Date: 10/21/19 Stop Date: 12/21/19 Status: Ordered Unisom 25 mg oral tablet 1 tablet = 25 mg, By Mouth, Daily at bedtime, PRN Vomiting, # 30 tablet, 1 Refills, Acute 12/21/19 10:52:00 EDT, 10/21/19 10:51:00 EDT, Tablet, [facility]/pharmacy #[id number], 155.2, cm, 06/05/19 16:00:00 EST, Height, 71.4, kg, 06/11/18 13:49:00 EST, Dry Weight Start Date: 10/21/19 Stop Date: 12/21/19 Status: Ordered Vitamin C By Mouth, Daily, 0 Refills, Maintenance, 10/21/19 9:44:00 EDT Start Date: 10/21/19 Status: Ordered Zofran 4 mg oral tablet 1 tablet = 4 mg, By Mouth, Every 8 hours, # 12 tablet, 0 Refills, Maintenance, 11/03/19 2:53:00 EDT, Tablet, [facility]/pharmacy #[id number], 155.2, cm, 06/05/19 16:00:00 EST, Height, 68.9, kg, 11/03/19 0:10:00 EDT, Dry Weight Start Date: 11/03/19 Status: Ordered Problem List Condition Effective Dates Status Health Status Inform ant Chronic UTI(Confirmed) Active History of depression(Confirmed) Active Healthy adult on routine phy sical examination(Confirmed) Active Migraine(Confirmed) Active Vital Signs Most recent to oldest [Reference Range]: 1 Weight 68.9 kg (11/03/19 12:10 AM) Oxygen Saturation [94-100 %] 100 % (11/03/19 12:10 AM) Pulse Rate [55-90 bpm] 77 bpm (11/03/19 12:10 AM) Blood Pressure [90-138/55-84 mm Hg] 112/ 65mm Hg (11/03/19 12:10 AM) Respiratory Rate [16-30 br/min] 16 br/mi n (5/26/20 12:10 AM) Temperature [96.8-100.4 DegF] 98.1 DegF (11/03/19 12:10 AM) Mode of Delivery (Oxygen) Room air (11/03/19 12:10 AM) Blood pressure sites Arm, right (11/03/19 12:10 AM) Temperature Route Oral (11/03/19 12:10 AM) Dry Weight 68.9 kg (11/03/19 12:10 AM) Weight Obtained Via Standing scale (11/03/19 12:10 AM) Dry Weight Obtained Via Standing scale (11/03/19 12:10 AM) Social History Social History Type Response Smoking Status Former smoker, quit more than 30 days ago; Tobacco user in household: No; Other: QUIT 2 PRIOR TO ; entered on: 11/03/19 Sex
--- OUTSIDE RECORDS SUMMARY | 2023-09-20 20:47 | XMS_ITS | Continuity of Care Document ---
Author Organization [facility] Address [address] [place] [address]- Care Team Providers Care Mortgage Loan Computation Clerk Name Role Phone Michael VERA, Germain Vargas Primary Care Physician [id number] Date(s): 11/20/19 - 12/20/19 [facility] [employer] [address] [place] [address]- [facility] Attending Physician: Jose Duke Admitting Physician: AdmJose calvert Referring Physician: AdmtrJose Allergies, Adverse Reactions, Alerts Substance Reaction Severity [...] eggs, hx GBS.Vaccine given left deltoid. Medications Fioricet oral capsule See Instructions, PRN as needed, 1-2 capsule By Mouth Every 4 hours not to exceed 6 capsules/day Not to be used for more than 5 days/month, # 30 capsule, 0 Refills, Maintenance, 12/16/19 8:29:00 EDT,Capsule, [facility]/pharmacy #[id number], 1-2 capsule By Mouth... Start Date: 12/16/19 Status: Ordered metoclopramide 10 mg oral tablet 1 tablet = 10 mg, By Mouth, 4 times a day, 30 minutes before meals and at bedtime, # 120 tablet, 0 Refills, Acute 02/17/20 12:00:00 EDT, 11/25/19 9:43:00 EDT, Tablet, [facility]/pharmacy #[id number], 155.2, cm, 11/18/19 9:47:00 EDT, Height, 67, kg, 11/24/19 20:31:... Start Date: 11/25/19 Stop Date: 02/17/20 Status: Ordered ondansetron 4 mg oral tablet, disintegrating 1 tablet = 4 mg, By Mouth, Every 8 hours, PRN Nausea & Vomiting, # 21 tablet, 1 Refills, Maintenance, 12/09/19 9:54:00 EDT, Tablet, [facility]/pharmacy #[id number], 155, cm, 11/26/19 14:45:00 EDT, Height, 67,kg, 11/24/19 20:31:00 EDT, Dry Weight Start Date: 12/09/19 Status: Ordered Pepcid 20 mg oral tablet 1 tablet = 20 mg, By Mouth, 2 times a day, # 180 tablet, 1 Refills, Maintenance, 11/27/19 9:55:00 EDT, Tablet, [facility]/pharmacy #[id number], 155, cm, 11/26/19 14:45:00 EDT, Height, 67, kg, 11/24/19 20:31:00 EDT, Dry Weight Start Date: 11/27/19 Status: Ordered Unisom 25 mg oral tablet 1 tablet = 25 mg, By Mouth, Daily at bedtime, PRN Vomiting, # 30 tablet, 1 Refills, Acute 12/21/19 10:52:00 EDT, 10/21/19 10:51:00 EDT, Tablet, [facility]207, 155.2, cm, 06/05/19 16:00:00 EST, Height, 71.4, [...] normal (Confirmed) Active Obesity (BMI 30.0-34.9)(Confirmed) Active Social History Social History Type Response Smoking Status Former smoker, quit more than 30 days ago; Tobacco user in household: No; Other: QUIT 2 PRIOR TO ; entered on: 11/03/19 Sex
--- OUTSIDE RECORDS SUMMARY | 2023-09-20 20:47 | XMS_ITS | Continuity of Care Document ---
Author Organization [facility] [employer] Address [address], [address] [place] [address]- Care Team Providers Care Editor Map Name Role Phone Michael VERA, Germain Vargas Primary Care Physician [id number] Date(s): 11/20/19 - 11/27/19 [facility] [employer] [address] [place] [address]- [facility] Attending Physician: Mayra Woods MD Referring Physician: Judith Ahn CNM Allergies, Adverse Reactions, [...] 12/01/19 9:52:00 EDT, 11/24/19 9:52:00 EDT, Tablet, [facility]/pharmacy #[id number], 155.2, cm, 11/18/19 9:47:00 EDT, Height, 72.72, k... Start Date: 11/24/19 Stop Date: 12/01/19 Status: Ordered metoclopramide 10 mg oral tablet 1 tablet = 10 mg, By Mouth, 4 times a day, 30 minutes before meals and at bedtime, # 120 tablet, 0 Refills, Acute 02/17/20 12:00:00 EDT, 11/25/19 9:43:00 EDT, Tablet, [id number], 155.2, cm, 11/18/19 9:47:00 EDT, Height, 67, kg, 11/24/19 20:31:... Start Date: 11/25/19 Stop Date: 02/17/20 Status: Ordered ondansetron 4 mg oral tablet, disintegrating 1 tablet = 4 mg, By Mouth, Every 8 hours, PRN Nausea & Vomiting, # 21 tablet, 0 Refills, Maintenance, 11/26/19 18:16:00 EDT, Tablet, [facility]/pharmacy #[id number], 155, cm, 11/26/19 14:45:00 EDT, Height, 67, kg, 11/24/19 20:31:00 EDT, Dry Weight Start Date: 11/26/19 Status: Ordered Pepcid 20 mg oral tablet 1 tablet = 20 mg, By Mouth, 2 times a day, # 180 tablet, 1 Refills, Maintenance, 11/27/19 9:55:00 EDT, Tablet, [facility]/pharmacy #[id number], 155, cm, 11/26/19 14:45:00 EDT, Height, [...]
--- OUTSIDE RECORDS SUMMARY | 2023-09-20 20:47 | XMS_ITS | Continuity of Care Document ---
Author Organization [facility] ter Address [address] [place] [address]- Care Team Providers Care Social Studies Department Chair Name Role Phone Germain Rodriguez MD Primary Care Physician [place] [facility] [place] 10/21/19 - 10/21/[address] [address]- [facility] Discharge Disposition: A-D/C Home Attending Physician: Marie Blankenship MD Admitting Physician: Marie Blankenship MD Referring Physician: Marie Blankenship MD Allergies, Adverse Reactions, Alerts Substance Reaction [...] 10:53:00 EST, Tablet, [facility] [address], 155.2, cm, 06/05/19 16:00:00 EST, Height, 71.4, kg, 06/11/18 13:49:00 EST,... Start Date: 06/24/19 Status: Ordered Multivitamins By Mouth, Daily, 0 Refills, Maintenance, 10/21/19 9:44:00 EDT Start Date: 10/21/19 Status: Ordered promethazine 25 mg rectal suppository 1 supp = 25 mg, Rectally, Every 6 hours, PRN as needed for nausea/vomiting, # 30 supp, 1 Refills, Maintenance, 10/21/19 10:53:00 EDT, Suppository, [facility]/pharmacy #[id number], 155.2, cm, 06/05/19 16:00:00 EST, Height, 71.4, kg, 06/11/18 13:49:00 EST, Dry Weight Start Date: 10/21/19 Stop Date: 11/04/19 Status: Ordered pyridoxine 25 mg oral tablet See Instructions, 1 tablet By Mouth TID 30 days, # 100 tablet, 1 Refills, Acute 12/21/19 10:52:00 EDT, 10/21/19 10:52:00 EDT, Tablet, [facility]/pharmacy #[id number], 155.2, cm, 06/05/19 16:00:00 EST, Height, 71.4, kg, 06/11/18 13:49:00 EST, Dry Weight Start Date: 10/21/19 Stop Date: 12/21/19 Status: Ordered Unisom 25 mg oral tablet 1 tablet = 25 mg, By Mouth, Daily at bedtime, PRN Vomiting, # 30 tablet, 1 Refills, Acute 12/21/19 10:52:00 EDT, 10/21/19 10:51:00 EDT, Tablet, [facility]/pharmacy #[id number], 155.2, cm, 06/05/19 16:00:00 EST, Height, [...] adult on routine phy sical examination(Confirmed) Active Vital Signs Most recent to oldest [Reference Range]: 1 Weight 70.0 kg (10/21/19 9:40 AM) Oxygen Saturation [94-100 %] 99 % (10/21/19 9:40 AM) Pulse Rate [55-90 bpm] 81 bpm (10/21/19 9:40 AM) Blood Pressure [90-138/55-84 mm Hg] 121/ 72mm Hg (10/21/19 9:40 AM) Temperature [96.8-100.4 DegF] 97.9 DegF (10/21/19 9:40 AM) Blood pressure sites Arm, right (10/21/19 9:40 AM) Temperature Route Oral (10/21/19 9:40 AM) Weight Obtained Via Standing scale (10/21/19 9:40 AM) Social History Social History Type Response Smoking Status Never smoker; Tobacc o user in household: No entered on: 07/18/16 Sex
--- OUTSIDE RECORDS SUMMARY | 2023-09-20 20:47 | XMS_ITS | Continuity of Care Document ---
Author Organization [facility] ter Address [address] [place] [address]- Care Team Providers Care Bridge Welder Name Role Phone Michael VERA, Germain Vargas Primary Care Physician [phone] Encounter [facility] [place] Date(s): 06/07/20 - 07/10/[address] [address]- Attending Physician: Isaac Juan MD Referring Physician: Trenton VERA, Casimiro Rodriguez Allergies, Adverse Reactions, Alerts Substance Reaction Severity [...] give 325mg per patient preference and re-dose [id number] within 4 hours, if needed. Patient should [...] Active Migraine(Confirmed) Active Obesity (BMI 30.0-34.9)(Confirmed) Active Social History Social History Type Response Smoking Status Former smoker, quit more than 30 days ago; Tobacco user in household: No; Other: QUIT 2 PRIOR TO ; entered on: 11/03/19 Sex
--- OUTSIDE RECORDS SUMMARY | 2023-09-20 20:47 | XMS_ITS | Continuity of Care Document ---
Author Organization [facility] ter Address [address] [place] [address]- Care Team Providers Care Councilman Name Role Phone Michael VERA, Germain Vargas Primary Care Physician Encounter [facility] Date(s): 11/24/19 - 11/25/[address] [address]- [facility] Discharge Disposition: A-D/C Home Attending Physician: Selma Box MD Admitting Physician: Selma Box MD Referring Physician: Selma Box MD Allergies, Adverse Reactions, Alerts Substance Reaction [...] 12/01/19 9:52:00 EDT, 11/24/19 9:52:00 EDT, Tablet, [facility]/pharmacy #[id number], 155.2, cm, 11/18/19 9:47:00 EDT, Height, 72.72, k... Start Date: 11/24/19 Stop Date: 12/01/19 Status: Ordered metoclopramide 10 mg oral tablet 1 tablet = 10 mg, By Mouth, 4 times a day, 30 minutes before meals and at bedtime, # 120 tablet, 0 Refills, Acute 02/17/20 12:00:00 EDT, 11/25/19 9:43:00 EDT, Tablet, [facility]/pharmacy #[id number], 155.2, cm, 11/18/19 9:47:00 EDT, Height, 67, kg, 11/24/19 20:31:... Start Date: 11/25/19 Stop Date: 02/17/20 Status: Ordered Unisom 25 mg oral tablet 1 tablet = 25 mg, By Mouth, Daily at bedtime, PRN Vomiting, # 30 tablet, 1 Refills, Acute 12/21/19 10:52:00 EDT, 10/21/19 10:51:00 EDT, Tablet, [facility]/pharmacy #[id number], 155.2, cm, 06/05/19 16:00:00 EST, Height, 71.4, kg, 06/11/18 13:49:00 EST, Dry Weight Start Date: 10/21/19 Stop Date: 12/21/19 Status: Ordered Vitamin B6 Daily, 0 Refills, Maintenance, 11/18/19 10:08:00 EDT Start Date: 11/18/19 Status: Ordered Zofran 4 mg oral tablet 1 tablet = 4 mg, By Mouth, Every 8 hours, Take as needed for nausea and vomiting of , # 30tablet, 0 Refills, Maintenance, 11/18/19 10:40:00 EDT, Tablet, [facility]/pharmacy #[id number], 155.2, cm, 11/18/19 9:47:00 EDT, Height, 72.72, kg, 11/03/19 15:09:0... Start Date: 11/18/19 Status: Ordered Problem List [...] recent to oldest [Reference Range]: 1 Weight 67.0 kg (11/24/19 8:31 PM) Oxygen Saturation [94-100 %] 100 % (11/24/19 8:40 PM) Pulse Rate [55-90 bpm] 73 bpm (11/24/19 8:40 PM) Blood Pressure [90-138/55-84 mm Hg] 100/ 67mm Hg (11/24/19 8:40 PM) Respiratory Rate [16-30 br/min] 18 br/mi n (11/24/19 8:40 PM) Temperature [96.8-100.4 DegF] 98.4 DegF (11/24/19 8:40 PM) Mode of Delivery (Oxygen) Room air (11/24/19 8:40 PM) Blood pressure sites Arm, right (11/24/19 8:40 PM) Temperature Route Oral (11/24/19 8:40 PM) Dry Weight 67.0 kg (11/24/19 8:31 PM) Weight Obtained Via Standing scale (11/24/19 8:31 PM) Social History Social History Type Response Smoking Status Former smoker, quit more than 30 days ago; Tobacco user in household: No; Other: QUIT 2 PRIOR TO ; entered on: 11/03/19 Sex
--- OUTSIDE RECORDS SUMMARY | 2023-09-20 20:47 | XMS_ITS | Continuity of Care Document ---
Author Organization [facility] [employer] Address [address], [address] [place] [address]- Care Team Providers Care Human Resources Operations Coordinator Name Role Phone Michael VERA, Germain Vargas Primary Care Physician [phone] En[place] [facility] [place](s): 04/22/20 - 05/22/20 [facility] [address] [place] [address]- Attending Physician: Jose Duke Admitting Physician: AdmtrJose Referring Physician: Admtr, Jose Allergies, Adverse Reactions, Alerts Substance Reaction Severity [...] month follow up for next vaccine. Medications aspirin 81 mg oral delayed release tablet 162 mg, 2, tablet, By Mouth, Daily, Refills 0, Maintenance, 04/18/20 8:17:00 EST Start Date: 04/18/20 Status: Ordered Fioricet oral capsule See Instructions, PRN as needed, 1-2 capsule By Mouth Every 4 hours not to exceed 6 capsules/day Not to be used for more than 5 days/month, # 30 capsule, 0 Refills, Maintenance, 12/16/19 8:29:00 EDT,Capsule, [id number], 1-2 capsule By Mouth... Start Date: 12/16/19 Status: Ordered LSO for lower back support LSO for lower back support, See Instructions, # 1 each, Refills 0, Tot. Refills 0, Maintenance, useas directed, 03/28/20 15:22:00 EDT, Supply, 155, cm, 03/23/20 11:11:00 EDT, Height, 67, kg, 11/24/19 20:31:00 EDT, Dry Weight Start Date: 03/28/20 Status: Ordered Pepcid 20 mg oral tablet 1 tablet = 20 mg, By Mouth, 2 times a day, # 180 tablet, 1 Refills, Maintenance, 11/27/19 9:55:00 EDT, Tablet, [id number], 155, cm, 11/26/19 14:45:00 EDT, Height, 67, kg, 11/24/19 20:31:00 EDT, Dry Weight Start Date: 11/27/19 Status: Ordered Multivitamins with FA 0.8 mg oral tablet 1 tablet, By Mouth, Daily, # 120 tablet, 4 Refills, Maintenance, 12/24/19 10:59:00 EDT, Tablet, [id number], Substitute as needed for insurance coverage, 1 tablet By Mouth Daily,x120 days, 155, cm, 12/24/19 10:34:00 EDT, Height, 67, kg, ... Start Date: 12/24/19 Stop Date: 08/15/21 Status: Ordered Problem List Condition Effective Dates [...]
--- OUTSIDE RECORDS SUMMARY | 2023-09-20 20:47 | XMS_ITS | Continuity of Care Document ---
Author Organization [facility] Address [address] [address]- Care Team Providers Care Perlite Grinder Name Role Phone Michael VERA, Germain Vargas Primary Care Physician Encounter 05/30/20 - 06/06/20 [facility] [address] [place] [address]- Attending Physician: Isaac Juan MD Referring Physician: Jimy OLIVO, Judith Fraser Allergies, Adverse Reactions, Alerts Substance Reaction Severity [...] By Mouth... Start Date: 12/16/19 Status: Ordered Pepcid 20 mg oral tablet [...] Date: 12/24/19 Stop Date: 08/15/21 Status: Ordered Valtrex 1 gm oral tablet 2 tablet = 2 Gm, By Mouth, Every 12 hours, # 8 tablet, 0 Refills, Maintenance, 05/30/20 10:43:00 EST, Tablet, [id number], Partial fill upon patient request if the prescription is for a schedule II opioid drug., 155, cm, 05/30/20 10:30:00 EST,... Start Date: 05/30/20 Status: Ordered Problem List Condition Effective Dates [...] oldest [Reference Range]: 1 Height 155 cm (05/30/20 10:30 AM) Weight 82.3 kg (05/30/20 10:30 AM) Body Mass Index [18.5-24.99] 34.26 *>HHI* (05/30/20 10:30 AM) Blood Pressure [90-138/55-84 mm Hg] 111/ 72mm Hg (05/30/20 10:30 AM) Blood pressure sites Arm, right (05/30/20 10:30 AM) Weight Obtained Via Standing scale (05/30/20 10:30 AM) Social History Social History Type Response Smoking Status Former smoker, quit more than 30 days ago; Tobacco user in household: No; Other: QUIT 2 PRIOR TO ; entered on: 11/03/19 Sex
--- OUTSIDE RECORDS SUMMARY | 2023-09-20 20:47 | XMS_ITS | Continuity of Care Document ---
Author Organization [facility] [facility] Address [address], [address] [place] [address]- Care Team Providers Care Regional Loss Prevention Manager Name Role Phone Michael VERA, Germain Vargas Primary Care Physician [id number] Date(s[facility] 10/30/19 - 12/20/19 [facility] [address] [place] [address]- [facility] Attending Physician: Mayra Woods MD [...] capsule, 0 Refills, Maintenance, 12/16/19 8:29:00 EDT,Capsule, [facility]/pharmacy #1, 1-2 capsule By Mouth... Start Date: 12/16/19 Status: Ordered metoclopramide 10 mg oral tablet 1 tablet = 10 mg, By Mouth, 4 times a day, 30 minutes before meals and at bedtime, # 120 tablet, 0 Refills, Acute 02/17/20 12:00:00 EDT, 11/25/19 9:43:00 EDT, Tablet, [facility]/pharmacy #[id number], 155.2, cm, 11/18/19 9:47:00 EDT, Height, 67, kg, 11/24/19 20:31:... Start Date: 11/25/19 Stop Date: 02/17/20 Status: Ordered ondansetron 4 mg oral tablet, disintegrating 1 tablet = 4 mg, By Mouth, Every 8 hours, PRN Nausea & Vomiting, # 21 tablet, 1 Refills, Maintenance, 12/09/19 9:54:00 EDT, Tablet, [facility]/pharmacy #[id number], 155, cm, 11/26/19 14:45:00 EDT, Height, 67,kg, 11/24/19 20:31:00 EDT, Dry Weight Start Date: 12/09/19 Status: Ordered Pepcid 20 mg oral tablet 1 tablet = 20 mg, By Mouth, 2 times a day, # 180 tablet, 1 Refills, Maintenance, 11/27/19 9:55:00 EDT, Tablet, [facility]/pharmacy #[id number], 155, cm, 11/26/19 14:45:00 EDT, [...]
--- OUTSIDE RECORDS SUMMARY | 2023-09-20 20:47 | XMS_ITS | Continuity of Care Document ---
Author Organization [facility] ter Address [address] [place] [address]- Care Team Providers Care Donor Services Manager Name Role Phone Germain Rodriguez MD Primary Care Physician [phone] En[place] [facility] [place] Date(s): 03/19/22 - 03/20/[address] [address]- Discharge Disposition: A-D/C Home Attending Physician: Yudi Pugh DO Admitting Physician: Jesus Hutchinson MD Referring Physician: Jesus Hutchinson MD Allergies, Adverse Reactions, Alerts No Known Allergies Immunizations Given and Recorded Vaccine Date Status [...] month follow up for next vaccine. Medications betamethasone-clotrimazole 0.05%-1% topical cream 1 application, Topically, 2 times a day, # 45 Gm, 1 Refills, Maintenance, 09/22/21 13:40:00 EDT, Cream, [facility]/pharmacy #[id number], Partial fill upon patient request if the prescription is for a schedule II opioid drug., 1 application Topically 2 times a day,... Start Date: 09/22/21 Status: Ordered ibuprofen 800 mg oral tablet 800 mg, 1, tablet, By Mouth, Every 8 hours, # 30 tablet, Refills 0, Tot. Refills 0, Maintenance, 03/20/22 1:38:00 EDT, Route to Pharmacy Electronically, [facility]/pharmacy #[id number], Partial fill upon patient request if the prescription is for a schedule II opi... Start Date: 03/20/22 Status: Ordered oxyCODONE 5 mg oral tablet 5 mg, 1, tablet, By Mouth, Every 6 hours, PRN, # 7 tablet, Refills 0, Tot. Refills 0, Maintenance, as needed for pain, 03/20/22 1:38:00 EDT, Route to Pharmacy Electronically, [facility]/pharmacy #[id number], Partial fill upon patient request if the prescription is... Start Date: 03/20/22 Status: Ordered sertraline 50 mg oral tablet 1 tablet = 50 mg, By Mouth, Daily, # 30 tablet, 12 Refills, Maintenance, 09/22/21 13:39:00 EDT, Tablet, [facility]/pharmacy #[id number], Partial fill upon patient request if the prescription is for a schedule II opioid drug., 155, cm, 09/22/21 13:11:00 EDT, Height... Start Date: 09/22/21 Status: Ordered Tylenol Extra Strength 500 mg oral tablet 2 tablet = 1,000 mg, By Mouth, Every 8 hours, PRN for pain, # 40 tablet, 0 Refills, Maintenance, 03/20/22 1:38:00 EDT, Tablet, [facility]/pharmacy #[id number], Partial fill upon patient request if the prescription is for a schedule II opioid drug., 155, cm, ... Start Date: 03/20/22 Status: Ordered Problem List Condition Confirmation Course Effective Dates Status H ealth Status Informant Acne Confirmed Active Depression Confirmed Active Urinary, incontinence, stress female Confirmed Active Menorrhagia Confirmed Active Migraine Confirmed Active Obesity (BMI 30.0-34.9) Confirmed Active Encounter for annual routine gynecological examination Confirmed Active depression Confirmed Active Decreased libido without sexual dysfunction Confirmed Active Vital Signs Most recent to oldest [Reference Range]: 1 2 3 Height 155 cm (03/20/22 1:31 AM) 155 cm (03/19/22 4:29 PM) Oxygen Saturation [94-100 %] 98 % (03/20/22 7:00 AM) 97 % (03/20/22 6:30 AM) 99 % (03/20/22 6:00 AM) Pulse Rate [55-90 bpm] 71 bpm (03/20/22 1:31 AM) 71 bpm (03/19/22 4:29 PM) Blood Pressure [90-138/55-84 mm Hg] 104/59mm Hg (03/20/22 7:00 AM) 98/64mm Hg (03/20/22 6:30 AM) 105/59mm Hg (03/20/22 6:00 AM) Respiratory Rate [16-30 br/min] 19 br/min (03/20/22 7:00 AM) 13 br/min *L* (03/20/22 6:30 AM) 16 br/min (03/20/22 6:00 AM) Temperature [96.8-100.4 DegF] 98.4 DegF (03/20/22 5:15 AM) 98.2 DegF (03/20/22 4:00 AM) 98.2 DegF (03/20/22:31 AM) Mode of Delivery (Oxygen) Room air (03/20/22 7:00 AM) Room air (03/20/22 6:30 AM) Room air (03/20/22 6:00 AM) Blood pressure sites Arm, right (03/20/22 4:00 AM) Arm, right (03/20/22 1:31 AM) Arm, left (03/19/22 4:29 PM) Temperature Route Temporal (03/20/22 5:15 AM) Temporal (03/20/22 4:00 AM) Temporal (03/20/22 1:31 AM) Dry Weight 67 kg (03/20/22 1:31 AM) Social History Social History Type Response Smoking Status Former smoker, quit more than 30 days ago; Tobacco user in household: No; Other: QUIT 2 PRIOR TO ; entered on: 11/03/19 Sex Patient Care team information Personnel Name: Germain Rodriguez MD Address: Address: [address] [place] [address], [address] [place], [place] [address]
--- OUTSIDE RECORDS SUMMARY | 2023-09-20 20:47 | XMS_ITS | Continuity of Care Document ---
Author Organization [facility] Address [address] [place] [address]- Care Team Providers Care Metallurgical Engineering Teacher Name Role Phone Germain Rodriguez MD Primary Care Physician Encounter 05/30/20 - 06/29/20 [facility] [address] [address]- Attending Physician: Jose Duke Admitting Physician: Jose Duke Referring Physician: AdmtrJose Allergies, Adverse Reactions, Alerts [...] give 325mg per patient preference and re-dose [id number] within 4 hours, if needed. Patient should only receive a total of 650mg of Acetaminophen every 4 hours., Refills 0, Maintenance, Pain , Mild, 0... Start Date: 06/12/20 Status: Ordered dicloxacillin 500 mg oral capsule 1 capsule = 500 mg, By Mouth, Every 6 hours, for 10 days, # 40 capsule, 0 Refills, Acute 07/05/20 17:52:00 EST, 06/25/20 17:52:00 EST, Capsule, [facility]/pharmacy #[id number], Partial fill upon patient request if the prescription is for a schedule II opioid drug.... Start Date: 06/25/20 Stop Date: 07/05/20 Status: Ordered dicloxacillin 500 mg oral capsule 1 capsule = 500 mg, By Mouth, Every 6 hours, for 14 days, # 56 capsule, 0 Refills, Acute 07/09/20 19:11:00 EST, 06/25/20 19:11:00 EST, Capsule, [facility]/pharmacy #[id number], Partial fill upon patient request if [...]
--- OUTSIDE RECORDS SUMMARY | 2023-09-20 20:47 | XMS_ITS | Continuity of Care Document ---
Author Organization [facility] ter Address [address] [place] [address]- Care Team Providers Care Hair Dresser Name Role Phone Michael VERA, Germain Vargas Primary Care Physician [phone] Encounter [facility] Date(s): 06/05/19 - 06/05/[address] [address]- [facility] Attending Physician: Angeles Castillo MD Allergies, Adverse Reactions, Alerts Substance Reaction [...] eggs, hx GBS.Vaccine given left deltoid. Medications lidocaine 5% topical ointment See Instructions, 1 application Topically 3 times a day, # 35 Gm, 0 Refills, Acute 06/12/19 16:54:00 EST, 06/05/19 16:53:00 EST, Ointment, [facility] [address], 1 application Topically 3 times a day, 155.2, cm, 06/05/19 16:00:00 EST, Height, 71.4,... Start Date: 06/05/19 Stop Date: 06/12/19 Status: Ordered Problem List Condition Effective Dates Status Health Status Inform ant History of depression(Confirmed) Active Healthy adult on routine phy sical examination(Confirmed) Active Social History Social History Type Response Smoking Status Never smoker; Tobacc o user in household: No entered on: 07/18/16 Sex
--- OUTSIDE RECORDS SUMMARY | 2023-09-20 20:47 | XMS_ITS | Continuity of Care Document ---
Author Organization [facility] ter Address [address] [place] [address]- Care Team Providers Care Air Pollution Specialist Name Role Phone Michael VERA, Germain Vargas Primary Care Physician [phone] Encounter [facility] Date(s): 10/26/19 - 12/25/[address] [address]- [facility] Attending Physician: Judith Ahn CNM Admitting Physician: Judith Ahn CNM Referring Physician: Judith Ahn CNM Allergies, Adverse [...] 0 Refills, Maintenance, 12/16/19 8:29:00 EDT,Capsule, [id number], 1-2 capsule By Mouth... Start Date: 12/16/19 Status: Ordered ondansetron 4 mg oral tablet, disintegrating 1 tablet = 4 mg, By Mouth, Every 8 hours, PRN Nausea & Vomiting, # 21 tablet, 1 Refills, Maintenance, 12/09/19 9:54:00 EDT, Tablet, [id number], 155, cm, 11/26/19 14:45:00 EDT, Height, 67,kg, 11/24/19 20:31:00 EDT, Dry Weight Start Date: 12/09/19 Status: Ordered Pepcid 20 mg oral tablet 1 tablet = 20 mg, By Mouth, 2 times a day, # 180 tablet, 1 Refills, Maintenance, 11/27/19 9:55:00 EDT, Tablet, [id number], 155, cm, 11/26/19 14:45:00 EDT, Height, 67, kg, 11/24/19 20:31:00 EDT, Dry Weight Start Date: 11/27/19 Status: Ordered Multivitamins with FA 0.8 mg oral tablet 1 tablet, By Mouth, Daily, # 120 tablet, 4 Refills, Maintenance, 12/24/19 10:59:00 EDT, Tablet, [facility], Substitute as needed for insurance coverage, 1 [...]
[2023-09-20 20:56] LABS: IDNOW Serial# 08D9AD1C; Strep A Nucleic Acid Positive (Negative)
[2023-09-20 21:28] LABS: Influenza A PCR NEGATIVE (Negative); Influenza B PCR NEGATIVE (Negative); Resp Syncy Virus RNA Qual PCR NEGATIVE (Negative); SARS COV2 PCR INHOUSE NEGATIVE (Negative)
[2023-09-20] MEDS: Ibuprofen 600 MG TABLET PO (22:07)
[2023-09-20] MEDS: Acetaminophen 325 MG TABLET 975 MG PO (22:07)
[2023-09-20] MEDS: Amoxicillin 500 MG CAPSULE PO (22:07)
[2023-09-20 22:10] VITALS: BP 123/60; PULSE 86; RESP 20; TEMP 37.2; O2SAT 98
== END 2023-09-20 22:11 | disposition home or self-care (01) ==
PROVIDERS: Nurse Practitioner Family; Emergency Provider Emergency Medicine; PCP Internal Medicine
DX: J02.0 Streptococcal pharyngitis (principal)
CPT/HCPCS: 0241U; 87651; 99283